=== PATIENT | male | born 1950 | race Caucasian/White ===

== ENCOUNTER 2023-12-19 05:02 | Inpatient (IN) | payer OTHER ==
[~2023-12-19] VITALS: Ht 175.3 cm; Wt 61.9 kg
--- NOTE | 2023-12-19 05:10 | NUR ---
Patient to ER bed 06 to gown for evaluation. Side rails up. Report given to LEE COCHRAN.
--- NOTE | 2023-12-19 05:10 | NUR ---
Received report from LEE Campbell. Received patient on bed #6, SAM from relative's home with c/o alcohol intoxication. As per EMS, relatives reported that patient checked out himself from assisted living, went to their house, and drank 12 cans of beer. But according to the patient, he drank 3 glasses of wine and that he does it daily. Patient has nausea and one episode of vomiting. Patient has left above the knee amputation, and scratches on his right lower leg. As per EMS, patient needs assistance to transfer to wheelchair. Patient is AAOx3, ENTERPRISE on both ears, able to answer questions but slowly responds. Vital signs within normal limits.
[2023-12-19 05:17] VITALS: BP_SYST 137; PULSE 84; RESP 19; TEMP 97.7; O2SAT 99
--- NOTE | 2023-12-19 06:19 | NUR ---
ER Dr. Almeida at bedside examining patient.
--- NOTE | 2023-12-19 06:25 | NUR ---
Xray at bedside.
--- NOTE | 2023-12-19 06:58 | NUR ---
Blood drawn at bedside by chief vendor quality.
[2023-12-19 07:11] LABS: BASOPHILS # (AUTO) 0.1 K/uL (0.0-0.2); BASOPHILS % (AUTO) 0.4 % (0.0-2.0); HEMATOCRIT 39.3 % (36-54); HEMOGLOBIN 13.4 g/dL (14.0-18.0); LYMPHOCYTES # (AUTO) 1.6 K/uL (1.0-5.5); LYMPHOCYTES % (AUTO) 11.5 % (20.5-51.5); MEAN CORPUSCULAR HEMOGLOBIN 31 pg (27-31); MEAN CORPUSCULAR HGB CONC 34 % (32-36); MEAN CORPUSCULAR VOLUME 92 fL (79.0-98.0); MONOCYTES # (AUTO) 0.4 K/uL (0.0-1.0); MONOCYTES % (AUTO) 3.2 % (1.7-9.3); NEUTROPHILS # (AUTO) 11.6 K/uL (1.8-7.7); NEUTROPHILS % (AUTO) 84.9 % (40.0-70.0); PLATELET COUNT (AUTO) 255 K/uL (130-430); RED BLOOD CELL COUNT(AUTO) 4.27 MIL/uL (4.2-6.2); RED CELL DISTRIBUTION WIDTH 13.3 % (9.0-15.0); WHITE BLOOD COUNT (AUTO) 13.6 K/uL (4.8-10.8)
--- NOTE | 2023-12-19 07:15 | NUR ---
RECEIVED REPORT FROM LEE HERRERA, CONTINUATION OF CARE ASSUMED.
--- NOTE | 2023-12-19 07:18 | NUR ---
PT IN BED, CONNECTED TO MONITOR, ASLEEP. PT ABLE TO AWAKE WITH VERBAL STIMULI. PT GCS 15, RESPONDING APPROPRIATELY TO QUESTIONS, SPONTANEOUS EYE OPENING, AND PURPOSEFUL MOVEMENT. PT STATING LAST DRINK WAS GLASS OF WINE, DOES NOT NORMALLY DRINK MUCH. CLEAR S1-S2 HEART SOUNDS, CLEAR LUNGS BILATERAL TO AUSCULTATION, AND NO TENDERNESS TO PALPATION OF ABD, NO GUARDING. PT ONLY C/O NAUSEA. DR TAMAYO NOTIFIED OF COMPLAINT AND ORDER RECEIVED FOR ZOFRAN ODT. PT ON RA, SATTING 97%, RESPIRATIONS 16/MIN.
[2023-12-19 07:25] LABS: ALANINE AMINOTRANSFERASE 62 U/L (12-78); ALBUMIN 3.6 g/dL (3.4-4.8); ALCOHOL, BLOOD 235 mg/dL (<10); AMYLASE 135 U/L (0-100); ANION GAP 19 (5-15); ASPARTATE AMINOTRANSFERASE 55 U/L (10-37); BILIRUBIN,DIRECT 0.3 mg/dL (0.0-0.3); CALCIUM 8.4 mg/dL (8.4-11.0); CARBON DIOXIDE 20 mmol/L (23-29); CHLORIDE 90 mmol/L (98-107); CREATININE 0.98 mg/dL (0.55-1.30); GLUCOSE 133 mg/dL (74-106); LIPASE 42 U/L (16-77); POTASSIUM 3.9 mmol/L (3.5-5.1); PROTHROMBIN TIME 10.1 SECS (9.5-12.5); SODIUM SERUM 129 mmol/L (136-145); TOTAL BILIRUBIN 0.8 mg/dL (0.0-1.0); TOTAL PROTEIN, SERUM 6.7 g/dL (6.4-8.3); UREA NITROGEN, BLOOD 12 mg/dL (8-21)
[2023-12-19] MEDS: ONDANSETRON 4 MG ODT TAB PO ONE (07:27)
--- NOTE | 2023-12-19 07:27 | NUR ---
PT INFORMED OF NEED FOR URINE SAMPLE FOR UA. PT PROVIDED URINAL AT BEDSIDE.
--- NOTE | 2023-12-19 07:31 | NUR ---
CALL MADE TO HOME PHONE NUMBER ON FILE, CALL RINGING TO VOICEMAIL. VOICEMAIL LEFT, ADVISING TO CALL BACK [facility].
--- NOTE | 2023-12-19 07:55 | NUR ---
# 20 gauge angiocath placed to L FOREARM. Use of asceptic technique. Opsite placed over site. Blood return noted. Flushed with 10 cc of normal saline. No evidence of infiltration noted.
[2023-12-19] MEDS: NACL 0.9% 1,000 ML IV ONE (07:58)
[2023-12-19 08:30] LABS: ACETONE, SERUM NEGATIVE (NEGATIVE)
[2023-12-19] MEDS ORDERED: LORA-259 PO (08:50)
--- NOTE | 2023-12-19 09:12 | NUR ---
LEFT MESSAGE FOR DE ICER KIT ASSEMBLER TO SEE PT.
--- NOTE | 2023-12-19 09:31 | NUR ---
UNABLE TO REACH ANY FAMILY FOR PT DISPOSITION. SOCIAL WORK NOTIFIED OF NEED.
--- NOTE | 2023-12-19 09:45 | NUR ---
SECOND CALL TO MONITORING COORDINATOR, SPOKE WITH EMILIE, WILL SEE PT
[2023-12-19 10:25] LABS: BILIRUBIN,URINE NEGATIVE (NEGATIVE); BLOOD, URINE 2+ (NEGATIVE); CLARITY/URINE CLEAR (CLEAR); COLOR,URINE YELLOW (YELLOW); GLUCOSE,URINE 1+ (NEGATIVE); KETONES,URINE 2+ (NEGATIVE); LEUKOCYTE ESTERASE ,URINE NEGATIVE (NEGATIVE); NITRITE, URINE NEGATIVE (NEGATIVE); PROTEIN URINE 2+ (NEGATIVE); UROBILINOGEN,URINE 0.2 (0.2-1.0)
--- NOTE | 2023-12-19 10:33 | NUR ---
PT RESTING IN BED WITH NO SIGNS OF ACUTE DISTRESS. PT CONNECTED TO MONITOR. PT PENDING EVAL BY SOCIAL WORK PRIOR TO DISPOSITION D/T UNKNOWN ADDRESS TO SEND PT OR FAMILY TO ASSUME CARE OF PT AFTER DISCHARGE.
[2023-12-19 10:48] LABS: BACTERIA,URINE None Seen /HPF (None Seen); HYALINE CASTS, URINE 0-3 /LPF (None Seen); WBC,URINE NONE SEEN /HPF (0-3)
--- NOTE | 2023-12-19 11:10 | NUR ---
EMILIE (SOCIAL WORK) AT BEDSIDE, EVALUATING PT
--- NOTE | 2023-12-19 11:17 | NUR ---
PT AWAKE IN BED, C/O NAUSEA. PT CONNECTED TO MONITOR. PT PENDING DISPOSITION D/T UNKNOWN DESTINATION OR FAMILY TO ASSUME CARE OF PT.
--- NOTE | 2023-12-19 11:20 | NUR ---
PT C/O RECURRENT NAUSEA AND BP RISING TO 174/85. DR RONI Fong NOTIFIED. ORDER RECEIVED/PLACED FOR ATIVAN 1MG IVP.
[2023-12-19] MEDS: LORazepam 2 MG/ML VIAL IVP ONE (11:32)
--- NOTE | 2023-12-19 11:52 | NUR ---
PT SEEN ASLEEP IN BED, CONNECTED TO MONITOR. PENDING DISCHARGE, IN COORDINATION WITH SOCIAL WORK. PT'S SISTER AND [id number] INFORMATION OBTAINED.
--- NOTE | 2023-12-19 12:53 | NUR ---
SPOKE WITH EMILIE (SOCIAL WORK) OVER PHONE, NO UPDATES AT THIS TIME. PT DOES NOT RECALL ADDRESS OF HIS SISTER'S HOUSE OR WHERE HE WAS PICKED UP.
--- NOTE | 2023-12-19 13:04 | NUR ---
SPOKE WITH BROTHER IN LAW MAURICIO GONGORA AT [phone] AND REQUESTING THAT ORACLE FUSION CONSULTANT FIND PLACEMENT FOR PT DUE TO ALCOHOLISM AND PT IS NO LONGER WELCOME IN HIS HOME. EXPLAINED THAT ORACLE FUSION CONSULTANT EMILIE SPOKE WITH PT AND THAT I WILL BE GIVING EMILIE HIS NUMBER TO SPEAK WITH HIM, HE AGREED TO THAT. CALL PLACED TO EMILIE AND MESSAGE LEFT, AWAITING CALL BACK
--- NOTE | 2023-12-19 13:13 | NUR ---
PT ASLEEP IN BED WITH NO SIGNS OF ACUTE DISTRESS, CONNECTED TO MONITOR.
--- NOTE | 2023-12-19 14:21 | NUR ---
PT ABLE TO REARRANGE POSITION IN BED WITH NO ASSISTANCE, RESPONDING APPROPRIATELY TO QUESTIONS AND OPENING EYE SPONTANEOUSLY. GCS 15. PT STILL PENDING DISPOSITION D/T MULTIPLE FACTORS, CORRECTION WARDEN EMILIE FOLLOWING CASE.
--- NOTE | 2023-12-19 14:42 | NUR ---
PER EMILIE (SOCIAL WORK), PT CANNOT BE DISCHARGED TO LONGTERM D/T LACK OF MODE OF MOBILITY (WHEELCHAIR) - PT L AKA. EMILIE STATING IF FAMILY IS ABLE TO BRING WHEELCHAIR, THEN PT CAN BE DISPOSITIONED TO NEARBY LONGTERM. PT ALSO IS NOT ELIGIBLE FOR RECOOPERATIVE CARE D/T LACK OF AMBULATION. PT HAS NOT SEEN PCP SINCE 2021, EMILIE STATING PCP IS UNABLE FOR RECOMMENDATION. DR RONI Fong NOTIFIED OF SITUATION.
--- NOTE | 2023-12-19 14:45 | NUR ---
Provider Calling:front services agent admissions to contact [facility] Reason for Call: admit request auth
--- NOTE | 2023-12-19 15:47 | NUR ---
Saturator Tender re: homelessness, placement, and alcoholism I met with patient in the ED earlier today, however he was not coherent enough to participate in line of questioning. Efforts were made to contact his family. I called and left a message for the brother in law. I provided my contact information and requested a return phone call. I went through the patient's health insurance and found his PCP, Dr. Joaquin Farias. I spoke with Liana, from the office who advised that the patient is under the care of Dr. Farias, however he hasn't been seen since 2021. She provided me with the emergency contact that the patient had, his brother, Mitesh. Mitesh has the same number attached to the patient, and no one answers that line. Multiple calls came from the ED asking about an update on the patient. I advised LEE Painting and Dr. Almeida of the barriers to the D/C. The patient is an amputee with a prosthesis and has a wheelchair, however neither are with the patient. At this time, the patient cannot be safely discharged. Per Dr. Almeida, he will likely admit. At the request of Dr. Almeida, contact information was provided for Dr. Joaquin Farias. Dr. Joaquin Farias: [phone]; [phone]; [address] [place] [address]; [place] [address] brotherMitesh: [phone]
--- NOTE | 2023-12-19 15:55 | NUR ---
PT SOILED, PT CLEANED W CLEAN WET WIPES, CHANGED INTO YELLOW GOWN AND NEW CHUX/LINEN PLACED UNDER PT. PT RECONNECTED TO CARDIAC LEADS, BP CUFF, AND PULSE OX.
--- NOTE | 2023-12-19 15:58 | NUR ---
PT SKIN VISUALIZED DURING CLEANING AND GOWNING. NO OPEN WOUNDS BUT SCATTERED DISCOLORATION AND RED LESIONS ON R SOTO. CIRCULAR PATCH 3" DIAMETER WITH RED DISCOLORATION SEEN ON R MIDDLE BACK. PT SACRUM NO OPEN WOUNDS BUT BLANCHABLE RED, PT INSTRUCTED TO REPOSITION IN BED MORE FREQUENTLY. PT VERBALIZED UNDERSTANDING. SCATTERED RED LESIONS SEEN ACROSS UPPER EXTREMITIES, NO OPEN WOUNDS OR PURULENT DISCHARGE.
--- NOTE | 2023-12-19 16:30 | NUR ---
Provider Calling:CEMENT BOAT AND BARGE LOADER MARY Reason for Call: CONNECT PEER TO PEER Orders AUTHORIZATION TO ADMIT Comments: AWAITING ROOM AVAILABLE PENDING H&P + FACESHEET FAXED TO Does ER need to call back Provider WILL FOLLOW UP WITH AFTER HOURS CASE MANAGEMENT FOR BED AT [phone]
--- NOTE | 2023-12-19 16:45 | NUR ---
TYPEWRITER TESTER MARY GAVE AUTHORIZATION TO ADMIT AWAITIING CALL BACK FOR FACILITY TO RECEIVE PT.
--- NOTE | 2023-12-19 17:00 | NUR ---
PT SEEN ASLEEP IN BED, ABLE TO WAKE W VERBAL STIMULI. PT AOX4, GCS 15. PT CONNECTED TO MONITOR. PT PENDING DISPOSITION - MD TO MD CALL BETWEEN INSURANCE MD AND DR RONI Blackmon
--- NOTE | 2023-12-19 17:02 | NUR ---
INFRASTRUCTURE SOFTWARE ENGINEER CALLED BACK TO NOTE INSURANCE COMPANY REQUESTED TELE UNIT AND NO BEDS AVAIALABLE. WILL CONTACT CHAPARRO Sharp VIA PAGER
--- NOTE | 2023-12-19 17:24 | NUR ---
ATTEMPTED TO PERFORM MED REC, PT DOES NOT RECALL ANY MEDICATIONS.
--- NOTE | 2023-12-19 17:25 | NUR ---
Admit bed requested Patient will be admitted to care of Dr. CHAPARRO Sharp Admitted to MED SURG unit. Diagnosis ALCOHOL ABUSE Inpatient (Yes or No) YES Observation (Yes or No) NO Orientation concerns or request close to nursing station (Yes or No) NO Covid Status N/A On vent or bipap NO Isolation requirements NO Needs a sitter NO From Home (Yes or if No enter name of facility) YES Requires Dialysis (Yes or No) NO Med Rec Completed (Yes of No) UNABLE TO OBTAIN
--- NOTE | 2023-12-19 18:04 | NUR ---
Patient will be admitted to care of DR CHAPARRO Sharp Admitted to MS unit. Will go to room 114A. Complete and up to date summary report printed. SBAR report to be given OVER PHONE with opportunity for questions.
--- NOTE | 2023-12-19 18:05 | NUR ---
REPORT GIVEN TO LEE WASHINGTON OVER PHONE WITH OPPORTUNITIES FOR QUESTIONS AND ANSWERS PROVIDED. PT TO BE PLACED IN MS BED 114A VIA WHEELCHAIR.
--- NOTE | 2023-12-19 18:22 | NUR ---
Admission Note Received patient from ER with diagnosis of ETOH. Initial Plan of Care discussed-patient verbalized his understanding. Noted patient with left CHARISSA-patient stated he left his prosthesis at his sister's house. Patient c/o nausea-MD called for orders-awaiting call back. Patient oriented to room, call light, pain management and safety. Side rails up x3, bed alarm on, room close to nursing station for safety. Call light within reach.
[2023-12-19 18:34] VITALS: BP_SYST 158; PULSE 104; RESP 18; TEMP 96.9; O2SAT 96
[2023-12-19] MEDS ORDERED: FOLIC ACID 1 MG, THIAMINE HCL 100 MG, MAGNESIUM SULFATE 1 GM, MVI 10 ML in NACL 0.9% 1,... IV ONE (19:15)
--- NOTE | 2023-12-19 19:25 | NUR ---
CLOSING NOTE Pt resting quietly in bed with no s/s resp distress, no c/o pain. C/o nausea-just put in order for Zofran from the doctor. Endorsed care to math interventionist nurse. Skin and safety precautions remain in place. Call light within reach.
[2023-12-19] MEDS: ONDANSETRON HCL 4 MG/2 ML VIAL IVP PRN (19:38)
[2023-12-19 19:55] VITALS: BP_SYST 151; PULSE 99; RESP 18; TEMP 97.8
[2023-12-19] MEDS: THIAMINE HCL 100 MG, MAGNESIUM SULFATE 1 GM in NS 100 ML IV ONE (20:19)
[2023-12-19] MEDS: chlordiazePOXIDE HCL 10 MG CAPSULE PO SCH (20:55)
[2023-12-19] MEDS: FOLIC ACID 1 MG, MVI 10 ML in NACL 0.9% 1,000 ML IV ONE (21:50)
[2023-12-20] VITALS: BP_SYST 146; PULSE 94; RESP 17; TEMP 97.5; O2SAT 97
--- NOTE | 2023-12-20 00:49 | NUR ---
NOTES PAGED AND SPOKE TO DR. MAYFIELD, PATIENT C/O HEADACHE, NEW ORDER GIVEN FOR TYLENOL 650 MG PO Q 4H PRN. WILL CONTINUE TO MONITOR.
[2023-12-20] MEDS: ACETAMINOPHEN 325 MG TABLET PO PRN (00:59)
[2023-12-20 07:45] VITALS: BP_SYST 150; PULSE 91; RESP 17; TEMP 98.2; O2SAT 94
--- NOTE | 2023-12-20 07:45 | NUR ---
opening notes Received report from die cast die maker nurse. Patient is lying in bed and eating breakfast. A0X4. respirations are even and unlabored. skin is warm and dry. bowel sounds are active. denies pain. patient educated on how to use call light. bed in lowest position. call light within reach.
--- NOTE | 2023-12-20 08:45 | NUR ---
note morning medication administered. patient tolerated well.
[2023-12-20] MEDS ORDERED: HYDROcodone/ACETAMIN 10-325 MG TAB PO PRN (09:15)
[2023-12-20] MEDS ORDERED: HYDROcodone/ACETAMIN 5-325 MG TAB (NORCO/ VICODIN) PO PRN (09:15)
[2023-12-20] MEDS ORDERED: NALOXONE HCL 0.4 MG/ML AMP (NARCAN) IVP PRN ×2 (09:15)
[2023-12-20 09:47] LABS: BASOPHILS % (AUTO) 0.5 % (0.0-2.0); EOSINOPHILS % (AUTO) 0.1 % (0.0-4.0); HEMATOCRIT 36.8 % (36-54); HEMOGLOBIN 12.4 g/dL (14.0-18.0); LYMPHOCYTES # (AUTO) 1.2 K/uL (1.0-5.5); LYMPHOCYTES % (AUTO) 14.4 % (20.5-51.5); MEAN CORPUSCULAR HEMOGLOBIN 31 pg (27-31); MEAN CORPUSCULAR HGB CONC 34 % (32-36); MEAN CORPUSCULAR VOLUME 94 fL (79.0-98.0); MONOCYTES # (AUTO) 0.6 K/uL (0.0-1.0); MONOCYTES % (AUTO) 7.1 % (1.7-9.3); NEUTROPHILS # (AUTO) 6.4 K/uL (1.8-7.7); NEUTROPHILS % (AUTO) 77.9 % (40.0-70.0); PLATELET COUNT (AUTO) 175 K/uL (130-430); RED BLOOD CELL COUNT(AUTO) 3.93 MIL/uL (4.2-6.2); RED CELL DISTRIBUTION WIDTH 13.7 % (9.0-15.0); WHITE BLOOD COUNT (AUTO) 8.3 K/uL (4.8-10.8)
[2023-12-20] MEDS: THIAMINE HCL 100 MG TABLET PO ONE (09:48)
[2023-12-20] MEDS: MULTIVITAMINS TAB 1 TABLET PO ONE (09:48)
[2023-12-20] MEDS: FOLIC ACID 1 MG TABLET PO ONE (09:48)
[2023-12-20 10:05] LABS: ALANINE AMINOTRANSFERASE 48 U/L (12-78); ALBUMIN 3.1 g/dL (3.4-4.8); ANION GAP 10 (5-15); ASPARTATE AMINOTRANSFERASE 39 U/L (10-37); CALCIUM 8.3 mg/dL (8.4-11.0); CARBON DIOXIDE 27 mmol/L (23-29); CHLORIDE 96 mmol/L (98-107); CREATININE 1.04 mg/dL (0.55-1.30); GLUCOSE 172 mg/dL (74-106); POTASSIUM 3.9 mmol/L (3.5-5.1); SODIUM SERUM 133 mmol/L (136-145); TOTAL BILIRUBIN 1.6 mg/dL (0.0-1.0); UREA NITROGEN, BLOOD 11 mg/dL (8-21)
[2023-12-20 12:40] VITALS: BP_SYST 144; PULSE 94; RESP 16; TEMP 98.2
[2023-12-20] MEDS: NORMAL SALINE 5 ML DISP.SYRIN IVF SCH (14:06)
--- NOTE | 2023-12-20 16:29 | NUR ---
Graphic Illustrator: Received a returned call from the brother in law, Salvador. He advised that I was calling his business line and not his personal number. He provided me with updated numbers for he and his [the patient's sister]. The face sheet was sent to Letha in admitting to update with accurate information. I spoke with both the sister and DAVID. The patient was residing in [place] with the brother Mitesh, however he dies 3wks ago. At this time, the sister and DAVID are looking to bring the patient near the area in order to have him around family so he is not alone. They have found a 55+ community in [place], however his move in date isn't until 01.24.24. At this time, the sister and DAVID are looking for a placement for the patient that will not allow him to have access to alcohol. The family was explained how placement in a treatment program works, but was not sure that the patient would go. i inquired about a wheelchair for the patient, and they state the patient has a prosthesis, walker and wheelchair. Lately the patient has been unable to walk, even with the prosthesis, therefore is confined to a wheelchair. I advised the family that I would ask for a PT eval and see if we can get him evaluated and maybe recommended for SNF placement for skilled rehab until he goes to his new usp. At this time, the patient resides in a 3rd story apartment in [place] that has no elevators. Spoke with RN Eli VIRAMONTES, and requested a PT eval. She advised she would get an order. I followed up with the family and requested they bring the prosthesis here to the hospital as the patient will need it for rehab. At this time, the patient has a pending PT eval order. Graphic Illustrator will remain available as needs arise.
[2023-12-20 17:02] VITALS: BP_SYST 155; PULSE 82; RESP 18; TEMP 99.7; O2SAT 96
[2023-12-20] MEDS: LORazepam 2 MG/ML VIAL IVP PRN (17:18)
--- NOTE | 2023-12-20 18:47 | NUR ---
closing note patient is lying in bed with the tv on. denies pain. no acute distress noted. iv is patent and has been flushed. patient educated on how to use call light. bed in lowest position. call light within reach.
[2023-12-20 19:00] VITALS: O2SAT 95
[2023-12-20 20:00] VITALS: BP_SYST 155; PULSE 89; RESP 18; TEMP 98.6; O2SAT 95
[2023-12-20] MEDS: LORazepam 1 MG TABLET PO SCH (21:44)
[2023-12-21 00:26] VITALS: BP_SYST 154; PULSE 83; RESP 14; TEMP 99; O2SAT 96
[2023-12-21 07:12] LABS: BASOPHILS % (AUTO) 0.2 % (0.0-2.0); EOSINOPHILS % (AUTO) 0.4 % (0.0-4.0); HEMATOCRIT 37.5 % (36-54); HEMOGLOBIN 12.4 g/dL (14.0-18.0); LYMPHOCYTES # (AUTO) 1.7 K/uL (1.0-5.5); LYMPHOCYTES % (AUTO) 24.4 % (20.5-51.5); MEAN CORPUSCULAR HEMOGLOBIN 32 pg (27-31); MEAN CORPUSCULAR HGB CONC 33 % (32-36); MEAN CORPUSCULAR VOLUME 95 fL (79.0-98.0); MONOCYTES # (AUTO) 0.5 K/uL (0.0-1.0); NEUTROPHILS # (AUTO) 4.7 K/uL (1.8-7.7); PLATELET COUNT (AUTO) 170 K/uL (130-430); RED BLOOD CELL COUNT(AUTO) 3.95 MIL/uL (4.2-6.2); RED CELL DISTRIBUTION WIDTH 13.4 % (9.0-15.0); WHITE BLOOD COUNT (AUTO) 6.9 K/uL (4.8-10.8)
[2023-12-21 07:36] LABS: ANION GAP 10 (5-15); CALCIUM 8.5 mg/dL (8.4-11.0); CARBON DIOXIDE 26 mmol/L (23-29); CHLORIDE 99 mmol/L (98-107); CREATININE 0.87 mg/dL (0.55-1.30); GLUCOSE 129 mg/dL (74-106); POTASSIUM 3.6 mmol/L (3.5-5.1); SODIUM SERUM 135 mmol/L (136-145); UREA NITROGEN, BLOOD 9 mg/dL (8-21)
[2023-12-21 08:15] VITALS: BP_SYST 133; PULSE 82; RESP 17; TEMP 97.6; O2SAT 98
[2023-12-21] MEDS: THIAMINE HCL 100 MG TABLET PO SCH (08:28)
[2023-12-21] MEDS: MULTIVITAMINS TAB 1 TABLET PO SCH (08:28)
[2023-12-21] MEDS: FOLIC ACID 1 MG TABLET PO SCH (08:29)
[2023-12-21 08:30] VITALS: O2SAT 98
--- NOTE | 2023-12-21 08:30 | NUR ---
opening note received report from warehouse worker 2nd shift nurse. patient is Lying in bed and eating breakfast. AOX4. skin is warm and dry. respirations are even and unlabored. bowel sounds are active. iv is patent and has been flushed. denies pain. patient educated on how to use call light. bed in lowest position. call light within reach.
[2023-12-21 12:00] VITALS: BP_SYST 134; PULSE 80; RESP 14; TEMP 97.9; O2SAT 94
--- NOTE | 2023-12-21 13:33 | NUR ---
note Family brought belongings for the patient. Belonging list updated.
[2023-12-21 16:35] VITALS: BP_SYST 152; PULSE 85; RESP 15; TEMP 98.2; O2SAT 100
--- NOTE | 2023-12-21 18:35 | NUR ---
closing note patient is lying in bed and watching tv. Aox4. patient denies pain and is not showing any distress. iv is patent and has been flushed. patient educated on how to use call light. bed in lowest position. call light within reach.
[2023-12-21 19:00] VITALS: O2SAT 95
--- NOTE | 2023-12-21 19:20 | NUR ---
OPENING NOTE PT SLEEPING, NO S/S OF DISTRESS NOTED, BED LOW AND LOCKED WITH SIDE RAILS UP X4, CALL LIGHT WITHIN A REACH. WILL ADMINISTER MEDS
[2023-12-22 00:28] VITALS: BP_SYST 146; PULSE 94; RESP 16; TEMP 98; O2SAT 98
--- NOTE | 2023-12-22 07:01 | NUR ---
CLOSING NOTE PT SLEEPING, NO S/S OF DISTRESS NOTED, BED LOW AND LOCKED WITH SIDE RAILS UP X4, CALL LIGHT WITHIN A REACH. WILL ENDORSE DAYTIME NURSE.
[2023-12-22 08:00] VITALS: BP_SYST 160; PULSE 87; RESP 16; TEMP 97.5; O2SAT 95
[2023-12-22 08:39] LABS: BASOPHILS % (AUTO) 0.3 % (0.0-2.0); EOSINOPHILS # (AUTO) 0.1 K/uL (0.0-0.4); EOSINOPHILS % (AUTO) 0.9 % (0.0-4.0); HEMATOCRIT 38.8 % (36-54); HEMOGLOBIN 13.2 g/dL (14.0-18.0); LYMPHOCYTES # (AUTO) 1.6 K/uL (1.0-5.5); LYMPHOCYTES % (AUTO) 25.4 % (20.5-51.5); MEAN CORPUSCULAR HEMOGLOBIN 32 pg (27-31); MEAN CORPUSCULAR HGB CONC 34 % (32-36); MEAN CORPUSCULAR VOLUME 94 fL (79.0-98.0); MONOCYTES # (AUTO) 0.5 K/uL (0.0-1.0); MONOCYTES % (AUTO) 7.4 % (1.7-9.3); NEUTROPHILS # (AUTO) 4.3 K/uL (1.8-7.7); PLATELET COUNT (AUTO) 167 K/uL (130-430); RED BLOOD CELL COUNT(AUTO) 4.12 MIL/uL (4.2-6.2); RED CELL DISTRIBUTION WIDTH 13.2 % (9.0-15.0); WHITE BLOOD COUNT (AUTO) 6.5 K/uL (4.8-10.8)
[2023-12-22 08:53] LABS: ALANINE AMINOTRANSFERASE 45 U/L (12-78); ANION GAP 7 (5-15); ASPARTATE AMINOTRANSFERASE 34 U/L (10-37); CALCIUM 8.6 mg/dL (8.4-11.0); CARBON DIOXIDE 29 mmol/L (23-29); CHLORIDE 100 mmol/L (98-107); CREATININE 0.84 mg/dL (0.55-1.30); GLUCOSE 119 mg/dL (74-106); POTASSIUM 3.4 mmol/L (3.5-5.1); SODIUM SERUM 136 mmol/L (136-145); TOTAL BILIRUBIN 0.8 mg/dL (0.0-1.0); UREA NITROGEN, BLOOD 10 mg/dL (8-21)
[2023-12-22 12:00] VITALS: BP_SYST 155; PULSE 88; RESP 16; TEMP 97.2; O2SAT 97
[2023-12-22] MEDS: POTASSIUM CHLORIDE 20 MEQ/PKT PACKET PO ONE (14:48)
[2023-12-22 16:00] VITALS: BP_SYST 152; PULSE 91; RESP 16; TEMP 97.4; O2SAT 97
[2023-12-22 20:00] VITALS: BP_SYST 147; PULSE 94; RESP 20; TEMP 97.2; O2SAT 95
--- NOTE | 2023-12-22 20:00 | NUR ---
Opening Notes Patient is alert and oriented to person, place, time, and event. Patient states he feels anxiety. Patient was educated on breathing techniques to relax and on medication prescribed. Fall precautions in place with call light within reach.
[2023-12-22 22:00] VITALS: O2SAT 96
[2023-12-23 00:05] VITALS: BP_SYST 152; PULSE 92; RESP 18; TEMP 97.6; O2SAT 96
--- NOTE | 2023-12-23 07:04 | NUR ---
Closing Note Patient is awake alert and oriented to person, place, time,and event. Patient denies any pain or discomfort. Fall precautions in place with call light within reach. Patients respirations are even and unlabored.
--- NOTE | 2023-12-23 07:41 | NUR ---
OPENING NOTE PT PRESENTS IN BED A&O X's 4. DENIES ANY PAIN BUT STATES HE HAS ANXIETY. SAFETY PRECAUTIONS ARE PUT IN PLACE. NO SIGNS OF DISTRESS. RECEIVED REPORT FROM THE SECURITY ROVER NURSE.
[2023-12-23 08:01] VITALS: O2SAT 95
[2023-12-23 08:09] VITALS: BP_SYST 129; PULSE 90; RESP 16; TEMP 97; O2SAT 95
--- NOTE | 2023-12-23 11:00 | NUR ---
ROUNDING : PT LYING ON THE BED,WITH EYE CLOSE , HOB ELEVATED ,BREATH EVEN AND NONLABORED, NO S/S DISTRESS, CALL LIGHT WITHIN REACH, SEIZURE ,FAll PRECAUTION IN PLACE .
[2023-12-23 12:45] VITALS: BP_SYST 123; PULSE 96; RESP 18; TEMP 98.6; O2SAT 97
--- NOTE | 2023-12-23 12:55 | NUR ---
ADJUSTED BELONGING: RECEIVED CALL FROM ADMISSION , SOMEBODY LEFT BELONGING FOR 112B , 1 CELLPHONE , 1 INFORMATION SYSTEMS ANALYST , 1 GLASSES GIVEN TO PT .
--- NOTE | 2023-12-23 13:22 | NUR ---
High School Drafting Teacher: Telephone call made tot he sister, Gissel, requesting that the patient is aware that he will be going to a SNF for skilled rehab, but is requesting his glasses and cell phone. The patient also requested his wheelchair, but I advised her not to bring the wheelchair as to not get it mixed in the SNF population of wheelchairs. I advised the sister that the SNF will have a loner wheelchair for his use. At the time, the sister states she will bring in the patient's cell phone and eye glasses. I advised her to check them in with the nurse prior to her giving them to the patient.
--- NOTE | 2023-12-23 14:01 | NUR ---
ROUNDING PT IS LYING ON THE BED RELAXING. NO SIGNS OF DISTRESS. BREATHING IS EVEN AND NON LABORED. SAFETY PRECAUTIONS ARE PUT IN PLACE.
--- NOTE | 2023-12-23 19:30 | NUR ---
closing note patient is lying in bed with eye close.breath even and nonlabored , denies pain. no acute distress noted. patient educated on how to use call light. bed in lowest position. call light within reach. seizure precaution in place. sbar report given to the material handler 2nd shift nurse at bedside .
[2023-12-23 20:00] VITALS: BP_SYST 118; PULSE 97; RESP 18; TEMP 98.1; O2SAT 92; O2SAT 98
--- NOTE | 2023-12-23 20:42 | NUR ---
OPENING NOTES RECEIVED REPORT FROM AM NURSE, PT IS RESTING IN BED AWAKE, CHEST RISING UP AND DOWN, NO SIGNS OF PAIN OR DISCOMFORT. BED ALARM ON, CALL LIGHT WITHIN REACH, SEIZURE PRECAUTIONS IN PLACE.
[2023-12-24] VITALS: BP_SYST 144; PULSE 86; RESP 18; TEMP 98
--- NOTE | 2023-12-24 04:21 | NUR ---
LATE ENTRY MST ASSESSMENT DONE AT 1999 BUT ENTERED LATE.
[2023-12-24 04:29] LABS: BASOPHILS % (AUTO) 0.3 % (0.0-2.0); EOSINOPHILS # (AUTO) 0.1 K/uL (0.0-0.4); EOSINOPHILS % (AUTO) 0.9 % (0.0-4.0); HEMATOCRIT 37.2 % (36-54); HEMOGLOBIN 12.6 g/dL (14.0-18.0); LYMPHOCYTES # (AUTO) 1.9 K/uL (1.0-5.5); LYMPHOCYTES % (AUTO) 25.6 % (20.5-51.5); MEAN CORPUSCULAR HEMOGLOBIN 32 pg (27-31); MEAN CORPUSCULAR HGB CONC 34 % (32-36); MEAN CORPUSCULAR VOLUME 94 fL (79.0-98.0); MONOCYTES # (AUTO) 0.6 K/uL (0.0-1.0); MONOCYTES % (AUTO) 8.5 % (1.7-9.3); NEUTROPHILS # (AUTO) 4.7 K/uL (1.8-7.7); NEUTROPHILS % (AUTO) 64.7 % (40.0-70.0); PLATELET COUNT (AUTO) 175 K/uL (130-430); RED BLOOD CELL COUNT(AUTO) 3.97 MIL/uL (4.2-6.2); RED CELL DISTRIBUTION WIDTH 13.3 % (9.0-15.0); WHITE BLOOD COUNT (AUTO) 7.3 K/uL (4.8-10.8)
[2023-12-24 04:57] LABS: ANION GAP 9 (5-15); CALCIUM 8.5 mg/dL (8.4-11.0); CARBON DIOXIDE 28 mmol/L (23-29); CHLORIDE 100 mmol/L (98-107); CREATININE 1.01 mg/dL (0.55-1.30); GLUCOSE 125 mg/dL (74-106); POTASSIUM 3.8 mmol/L (3.5-5.1); SODIUM SERUM 137 mmol/L (136-145); UREA NITROGEN, BLOOD 18 mg/dL (8-21)
[2023-12-24 07:15] VITALS: BP_SYST 132; PULSE 85; RESP 14; TEMP 97.3; O2SAT 95
--- NOTE | 2023-12-24 07:30 | NUR ---
OPENING NOTE PT PRESENTS LYING IN BED WITH NO S/S OF DISTRESS. RECEIVED REPORT FROM PHLEBOTOMY TECHNOLOGIST NURSE. PT VITALS ARE STABLE. PT BED ALARM IS ON AND SAFETY PRECAUTIONS ARE PUT IN PLACE.
--- NOTE | 2023-12-24 07:48 | NUR ---
CLOSING NOTES PT. IS RESTING IN BED, NO SIGNS OF PAIN OR DISCOMFORT. ALL SAFETY MEASURES ON, BED IN LOW POSITION AND CALL LIGHT WITHIN REACH. WILL ENDORSE REPORT TO AM NURSE.
[2023-12-24 11:18] VITALS: BP_SYST 137; PULSE 88; RESP 15; TEMP 96.4; O2SAT 97
--- NOTE | 2023-12-24 13:31 | NUR ---
Green Plumber PARKING CASHIER called [facility] pt. who already had a bed assigned. Admissions stated they received word that pt.s insurance, [employer] is not an accepted insurance. Pt. will not be able to go to this SNF. PARKING CASHIER called [employer] to get the phone contact for [facility]. Scan, [facility]- [phone]. PARKING CASHIER left a message . PARKING CASHIER called back, spoke to rep. who stated the CM is Tarun, . PARKING CASHIER left a detailed message and is in need of contracted SNFs. Addendum: 12/24/23 at 1608 by Arabella Parker MSW Green Plumber PARKING CASHIER received some names of contracted SNFs, sent packet to the following [facility] ph.[phone] fx. [phone] [facility] [phone] [facility] ph.[phone] Yes they take this insurance but corporate instructed them not to take this insurance due to rates being too low [facility] ph. [phone] fx. [phone] [facility] ph. [phone] [address] [phone] [facility] ph. [phone] does not take this insurance Leroy olivas [facility] ph. [phone] Fx.[phone] Addendum: 12/25/23 at 1629 by Arabella Parker PARKING CASHIER Green Plumber PARKING CASHIER made some follow up phone calls re. the clinicals that were sent. [facility], -no reply [facility] -stated No because as per their cooperate, the rates are too low. [place]- No, would not give a reason when asked [facility]- No they do not take any [facility]AN [facility], no if the insurance does not say, "[place]" Leroy [place] now called [place]- left for the day.
--- NOTE | 2023-12-24 13:56 | NUR ---
Dietitian Recommendations Continue Regular diet. Recommend ONS - Ensure HP BID to help meet nutritional needs (Provides 700 calories and 40g of protein) Encourage good PO intakes. Consider BM regimen to promote normal GI function. Please refer to nutrition assessment for details. MS DANIEL RD Addendum: 12/24/23 at [address] Amended: Links added. Addendum: 12/24/23 at [address] CORRECTION: *Recommend ONS - Glucerna BID to help meet nutritional needs (Provides 440 calories and 20g of protein)
[2023-12-24 15:13] VITALS: BP_SYST 140; PULSE 87; RESP 16; TEMP 97.7; O2SAT 96
--- NOTE | 2023-12-24 19:20 | NUR ---
closing note patient is lying in bed with eye close.breath even and nonlabored , denies pain. no acute distress noted. bed in lowest position. call light within reach. seizure precaution,fall precaution in place. sbar report given to the cnc machinist 2nd shift nurse at bedside .
--- NOTE | 2023-12-24 19:50 | NUR ---
OPENING NOTE RECEIVED THE REPORT FROM DAY NURSE, PATIENT RESTING IN BED, AOX4, PATIENT DENIES PAIN. BED ALARM ON, BED IN LOWEST POSITION, RAILS UP. CALL LIGHT WITHIN REACH.
[2023-12-24 20:00] VITALS: O2SAT 96
[2023-12-25 00:05] VITALS: BP_SYST 141; PULSE 89; RESP 16; TEMP 97.3; O2SAT 94
--- NOTE | 2023-12-25 06:44 | NUR ---
CLOSING NOTE PATIENT RESTING IN BED, NO C/O PAIN OR DISTRESS. AOX4, UNLABORED BREATHING, BED ALARM ON, BED IN LOWEST POSITION, RAILS UP, AND CALL LIGHT WITHIN REACH. ALL NEEDS MET THROUGHOUT THE MANAGER CARE.
[2023-12-25 06:52] LABS: BASOPHILS % (AUTO) 0.2 % (0.0-2.0); EOSINOPHILS # (AUTO) 0.1 K/uL (0.0-0.4); EOSINOPHILS % (AUTO) 1.5 % (0.0-4.0); HEMOGLOBIN 13.1 g/dL (14.0-18.0); LYMPHOCYTES # (AUTO) 1.9 K/uL (1.0-5.5); LYMPHOCYTES % (AUTO) 22.3 % (20.5-51.5); MEAN CORPUSCULAR HEMOGLOBIN 32 pg (27-31); MEAN CORPUSCULAR HGB CONC 34 % (32-36); MEAN CORPUSCULAR VOLUME 94 fL (79.0-98.0); MONOCYTES # (AUTO) 0.8 K/uL (0.0-1.0); MONOCYTES % (AUTO) 9.7 % (1.7-9.3); NEUTROPHILS # (AUTO) 5.5 K/uL (1.8-7.7); NEUTROPHILS % (AUTO) 66.3 % (40.0-70.0); PLATELET COUNT (AUTO) 174 K/uL (130-430); RED BLOOD CELL COUNT(AUTO) 4.14 MIL/uL (4.2-6.2); RED CELL DISTRIBUTION WIDTH 13.6 % (9.0-15.0); WHITE BLOOD COUNT (AUTO) 8.4 K/uL (4.8-10.8)
--- NOTE | 2023-12-25 07:40 | NUR ---
INITIAL NOTES: Patient is aaox4, denies pain or any discomfort at this time. Respiration is even and unlabored. No episodes of hallucinations. Continue to follow seizure precaution. Bilateral rails are padded. Bed in lowest position. Remind the use of call light for any help. Call light within reach. All needs met.
[2023-12-25 07:49] LABS: ALANINE AMINOTRANSFERASE 87 U/L (12-78); ALBUMIN 3.1 g/dL (3.4-4.8); ANION GAP 8 (5-15); ASPARTATE AMINOTRANSFERASE 47 U/L (10-37); CALCIUM 8.6 mg/dL (8.4-11.0); CARBON DIOXIDE 27 mmol/L (23-29); CHLORIDE 101 mmol/L (98-107); CREATININE 0.97 mg/dL (0.55-1.30); GLUCOSE 114 mg/dL (74-106); POTASSIUM 3.7 mmol/L (3.5-5.1); SODIUM SERUM 136 mmol/L (136-145); TOTAL BILIRUBIN 0.5 mg/dL (0.0-1.0); TOTAL PROTEIN, SERUM 6.3 g/dL (6.4-8.3); UREA NITROGEN, BLOOD 19 mg/dL (8-21)
[2023-12-25 07:56] VITALS: BP_SYST 143; PULSE 87; RESP 18; TEMP 97.6; O2SAT 96
[2023-12-25 09:13] VITALS: O2SAT 96
[2023-12-25 12:36] VITALS: BP_SYST 154; PULSE 89; RESP 16; TEMP 98.7; O2SAT 99
[2023-12-25 16:51] VITALS: BP_SYST 143; PULSE 84; RESP 16; TEMP 98.7; O2SAT 96
--- NOTE | 2023-12-25 18:08 | NUR ---
CLOSING NOTES: Patient is aaox4, verbally responsive. Denies pain or any discomfort at this time. Ambulate with PT via walker with no difficulties. No pain after ambulation. Respiration is even and unlabored. V/S within pt normal limit. Able to eat with no difficulties. Daughter at the bedside. Remind the use of call light for any help. Bed in lowest position. Call light within reach. All needs met.
--- NOTE | 2023-12-25 18:20 | NUR ---
CLOSING NOTES: Patient is asleep in bed, no facial grimacing or any discomfort at this time. Respiration is even and unlabored. Bed in lowest position. Continue with seizure precaution. Call light within reach. All needs met.
[2023-12-25 20:00] VITALS: BP_SYST 150; PULSE 86; RESP 16; TEMP 98.6; O2SAT 95
[2023-12-26] VITALS (8 sets, daily range): BP systolic 105–135; PULSE 87–92; RESP 16–18; TEMP 97.2–98.9; O2SAT 94–99
--- NOTE | 2023-12-26 02:24 | NUR ---
CONSULTATION PAGED/CALLED Reason for Consultation: TRANSAMINITIS Person Who was Notified: ALMA DELIA Consulting Physician: VIVIANA Gold Burnisher Specialty: GI Ordering Physician: CHAPARRO
--- NOTE | 2023-12-26 07:57 | NUR ---
INITIAL NOTES: Patient is aaox4, verbally responsive. Denies pain or any discomfort at this time. Respiration is even and unlabored. Patient refused Right side of the padded rails. Patient is aware of risk and benefit. Remind the use of call light for any help. Patient can use urinal. Call light within reach. All needs met.
[2023-12-26 08:14] LABS: BASOPHILS % (AUTO) 0.3 % (0.0-2.0); EOSINOPHILS # (AUTO) 0.1 K/uL (0.0-0.4); EOSINOPHILS % (AUTO) 2.2 % (0.0-4.0); HEMATOCRIT 38.4 % (36-54); HEMOGLOBIN 13.2 g/dL (14.0-18.0); LYMPHOCYTES # (AUTO) 1.7 K/uL (1.0-5.5); LYMPHOCYTES % (AUTO) 27.5 % (20.5-51.5); MEAN CORPUSCULAR HEMOGLOBIN 32 pg (27-31); MEAN CORPUSCULAR HGB CONC 34 % (32-36); MEAN CORPUSCULAR VOLUME 94 fL (79.0-98.0); MONOCYTES # (AUTO) 0.8 K/uL (0.0-1.0); MONOCYTES % (AUTO) 13.4 % (1.7-9.3); NEUTROPHILS # (AUTO) 3.5 K/uL (1.8-7.7); NEUTROPHILS % (AUTO) 56.6 % (40.0-70.0); PLATELET COUNT (AUTO) 190 K/uL (130-430); RED BLOOD CELL COUNT(AUTO) 4.08 MIL/uL (4.2-6.2); RED CELL DISTRIBUTION WIDTH 13.4 % (9.0-15.0); WHITE BLOOD COUNT (AUTO) 6.1 K/uL (4.8-10.8)
[2023-12-26 08:51] LABS: ALANINE AMINOTRANSFERASE 99 U/L (12-78); ALBUMIN 3.2 g/dL (3.4-4.8); ANION GAP 7 (5-15); ASPARTATE AMINOTRANSFERASE 46 U/L (10-37); CALCIUM 8.7 mg/dL (8.4-11.0); CARBON DIOXIDE 28 mmol/L (23-29); CHLORIDE 102 mmol/L (98-107); CREATININE 0.95 mg/dL (0.55-1.30); GLUCOSE 101 mg/dL (74-106); POTASSIUM 3.8 mmol/L (3.5-5.1); SODIUM SERUM 137 mmol/L (136-145); TOTAL BILIRUBIN 0.6 mg/dL (0.0-1.0); TOTAL PROTEIN, SERUM 6.4 g/dL (6.4-8.3); UREA NITROGEN, BLOOD 17 mg/dL (8-21)
[2023-12-26 09:07] LABS: HEPATITIS B SURFACE AG Negative (Negative); HEPATITIS C VIRUS AB Non Reactive (Non Reactive)
[2023-12-26 10:07] LABS: AFP, TUMOR MARKER <1.8 ng/mL (0.0-8.4)
[2023-12-26 10:51] LABS: HEPATITIS B CORE AB, TOTAL Negative (Negative)
--- NOTE | 2023-12-26 14:08 | NUR ---
Supervisor Aircraft Cleaning: Efforts continue to be made in order to get the patient in a SNF. At this time there are no accepting facilities due to the 6 contracted facilities in the [place] either no longer accept the insurance or are not accepting the patient due to prior behaviors. The patient has a history of eloping, leaving AMA, and being verbally aggressive. I called the sister, Gissel, to advise her of the the situation regarding SNF placement at discharge. I advised her that the patient would be discharged home, either to her home or his home. The sister advised that the patient was not welcome to her home, but he would need to return to his home. I advised her that we could get home health for him in which a physical therapist would come out to the home to continue to offer him rehab services. The sister advised that the patient would need his wheelchair and that she could not bring it to him today. The sister stated she could bring the wheelchair to him tomorrow and transport him home. The patient will return to his home in [place]. Marci HOWARD CM advised of the sister's agreement to home with home health services, and the sister's plan to transport him to his house.
--- NOTE | 2023-12-26 15:33 | NUR ---
CM: MARÍA barriers: so far there is no accepting snf. HH referral sent to [facility] tel # [phone], fax # . Addendum: 12/26/23 at 1544 by Akhil Mendoza RN Correction: HH referral sent to [facility] per yaquelin Covarrubias request.
--- NOTE | 2023-12-26 18:02 | NUR ---
CLOSING NOTES: Patient is aaox4, verbally responsive. Denies pain or any discomfort at this time. Refused right side padded rails. Aware of risk and benefit. Patient is continent to bowel and bladder. No alcohol withdrawal symptoms at this time. Able to use urinal and bed buck. Remind the use of jaclyn light for any help. Call light within reach. All needs met.
--- NOTE | 2023-12-26 20:00 | NUR ---
Opening Notes Patient is alert and oriented to person, place time, and event. Patient is on room air. Respirations are unlabored and even. Patient is calm and cooperative. Denies any pain or discomfort. Fall precautions in place with call light within reach.
[2023-12-26] MEDS: LORazepam 2 MG/ML VIAL IVP PRN (21:11)
[2023-12-27 00:16] VITALS: BP_SYST 122; PULSE 90; RESP 18; TEMP 96.6; O2SAT 97
[2023-12-27 06:44] LABS: BASOPHILS % (AUTO) 0.5 % (0.0-2.0); EOSINOPHILS # (AUTO) 0.2 K/uL (0.0-0.4); EOSINOPHILS % (AUTO) 2.6 % (0.0-4.0); HEMATOCRIT 38.1 % (36-54); HEMOGLOBIN 13.1 g/dL (14.0-18.0); LYMPHOCYTES # (AUTO) 1.9 K/uL (1.0-5.5); LYMPHOCYTES % (AUTO) 28.5 % (20.5-51.5); MEAN CORPUSCULAR HEMOGLOBIN 32 pg (27-31); MEAN CORPUSCULAR HGB CONC 34 % (32-36); MEAN CORPUSCULAR VOLUME 93 fL (79.0-98.0); MONOCYTES # (AUTO) 0.9 K/uL (0.0-1.0); NEUTROPHILS # (AUTO) 3.6 K/uL (1.8-7.7); NEUTROPHILS % (AUTO) 54.4 % (40.0-70.0); PLATELET COUNT (AUTO) 203 K/uL (130-430); RED BLOOD CELL COUNT(AUTO) 4.08 MIL/uL (4.2-6.2); RED CELL DISTRIBUTION WIDTH 13.4 % (9.0-15.0); WHITE BLOOD COUNT (AUTO) 6.6 K/uL (4.8-10.8)
--- NOTE | 2023-12-27 06:53 | NUR ---
Closing Note Patient is sleeping. Respirations are even and unlabored. IV is patent running as indicated. Fall precautions in place with call light within reach.
[2023-12-27 07:56] LABS: ALANINE AMINOTRANSFERASE 101 U/L (12-78); ALBUMIN 3.2 g/dL (3.4-4.8); ANION GAP 8 (5-15); ASPARTATE AMINOTRANSFERASE 42 U/L (10-37); CALCIUM 8.7 mg/dL (8.4-11.0); CARBON DIOXIDE 26 mmol/L (23-29); CHLORIDE 102 mmol/L (98-107); CREATININE 1.11 mg/dL (0.55-1.30); GLUCOSE 112 mg/dL (74-106); POTASSIUM 3.9 mmol/L (3.5-5.1); SODIUM SERUM 136 mmol/L (136-145); TOTAL BILIRUBIN 0.6 mg/dL (0.0-1.0); TOTAL PROTEIN, SERUM 6.6 g/dL (6.4-8.3); UREA NITROGEN, BLOOD 21 mg/dL (8-21)
[2023-12-27 08:05] VITALS: BP_SYST 135; PULSE 96; RESP 15; TEMP 97.6; O2SAT 95
--- NOTE | 2023-12-27 08:05 | NUR ---
opening note received report from night court magistrate nurse. patient is lying in bed and eating breakfast. patient's skin is warm and dry. respirations are even and unlabored. bowel sounds active. iv is patent and has been flushed. patient educated on how to use call light. bed in lowest position. call light within reach.
[2023-12-27 09:00] VITALS: O2SAT 95
[2023-12-27] MEDS ORDERED: FOLI-43 PO (10:17)
[2023-12-27] MEDS ORDERED: LORA-259 PO (10:17)
[2023-12-27] MEDS ORDERED: THIA100T70 PO (10:17)
[2023-12-27] MEDS ORDERED: MULT400T13 PO (10:17)
[2023-12-27 11:30] VITALS: BP_SYST 120; PULSE 86; RESP 18; TEMP 98.3; O2SAT 98
--- NOTE | 2023-12-27 11:53 | NUR ---
This ws able to arrange HH: [facility] for PT [phone]
--- NOTE | 2023-12-27 13:43 | NUR ---
PHYSICAL THERAPY CO-SIGN The Physical Therapy Progress Notes documented by Alarm Installer have been reviewed. Reviewed/Co-Signed by: Humera Means Documentation Done by:CLIFFORD SEYMOUR Addendum: 12/27/23 at 1343 by Humera Means PT Amended: Links added.
--- NOTE | 2023-12-27 14:12 | NUR ---
Die Engraving Supervisor: Telephone call made to the sister to discuss the discharge arrangements that had been made yesterday as I received a call from nursing that advised she stated she couldn't come today but would come in tomorrow. I advised her that the order was written for today and the patient was discharging today. She indicated that she just received a call to come brick picker the patient, but she couldn't do that due to the time as she had another obligation to be at by 5p. She advised she could be in tomorrow early to brick picker the patient. The patient requires his wheelchair in order to go home and the wheelchair is with the sister at this time. I requested the wheelchair to be brought to the hospital and we can send him home via [employer]. The sister was concerned that the patient would not be able to lift his chair while wearing the prosthesis in order to get up the stairs. I advised her that I would attempt to go through his insurance. Attempts made to [facility] and [employer] for assistance, however there was no answer on either line. I called the sister back and advised her of my inability to get a transport for him to assist him. I advised her that nursing will call her first thing in the AM for transport. Update provided to EUFEMIA Ricci. I advised him to endorse to the next 2 shifts to call the sister first thing in the morning in order to avoid an inability to brick picker the patient. [facility]: [phone] [employer]: [phone]
[2023-12-27 15:22] VITALS: BP_SYST 111; PULSE 87; RESP 16; TEMP 96.9; O2SAT 98
--- NOTE | 2023-12-27 18:29 | NUR ---
closing note patient is lying in bed and watching tv. AOX4. patient has no complaints at this time. denies pain. iv is patent and has been flushed. patient educated on how to use call light. bed in lowest position. call light within reach.
--- NOTE | 2023-12-27 19:25 | NUR ---
NOTE ENDORSED PT BEING D/C HOME IN THE AM. Addendum: 12/27/23 at 1926 by Josue Yuan LVN ENDORSED TO RN ABOUT PT BEING D/C HOME IN THE AM.
[2023-12-27 20:00] VITALS: BP_SYST 134; PULSE 92; RESP 18; TEMP 98.8; O2SAT 97
--- NOTE | 2023-12-27 20:00 | NUR ---
PT ALERT AND ORIENTED X4 NO DISTRESS, SKIN INTACT, L AKA, PT GETS ATIVAN AND ALSO COMPLAINED OF NAUSEA ONCE THIS SHIFT, DENIES ANY PAIN,
[2023-12-28] VITALS: BP_SYST 155; PULSE 93; RESP 18; TEMP 97.9
[2023-12-28 08:00] VITALS: O2SAT 98
--- NOTE | 2023-12-28 08:00 | NUR ---
OPENING NOTES: RECEIVED BEDSIDE SBAR FROM PM SHIFT NURSE , NO S/S OF ANY DISTRESS, NON LABOR BREATHING, CALL LIGHT IN REACH BED AT LOW AND LOCKED POSITION ALL SAFETY AND FALL RISKS IN PLACE, WILL GIVE MEDS PER ORDERS, ALL NEEDS MADE KNOWN.
[2023-12-28 08:06] LABS: ALANINE AMINOTRANSFERASE 88 U/L (12-78); ALBUMIN 3.2 g/dL (3.4-4.8); ANION GAP 8 (5-15); ASPARTATE AMINOTRANSFERASE 34 U/L (10-37); CALCIUM 8.9 mg/dL (8.4-11.0); CARBON DIOXIDE 28 mmol/L (23-29); CHLORIDE 101 mmol/L (98-107); CREATININE 1.07 mg/dL (0.55-1.30); GLUCOSE 117 mg/dL (74-106); POTASSIUM 4.4 mmol/L (3.5-5.1); SODIUM SERUM 137 mmol/L (136-145); TOTAL BILIRUBIN 0.6 mg/dL (0.0-1.0); TOTAL PROTEIN, SERUM 6.7 g/dL (6.4-8.3); UREA NITROGEN, BLOOD 22 mg/dL (8-21)
[2023-12-28 08:47] LABS: EOSINOPHILS # (AUTO) 0.2 K/uL (0.0-0.4); LYMPHOCYTES # (AUTO) 2.2 K/uL (1.0-5.5); LYMPHOCYTES % (AUTO) 30.1 % (20.5-51.5); MONOCYTES # (AUTO) 1.1 K/uL (0.0-1.0); NEUTROPHILS # (AUTO) 3.8 K/uL (1.8-7.7); RED CELL DISTRIBUTION WIDTH 13.4 % (9.0-15.0)
[2023-12-28 08:49] LABS: BASOPHILS % (AUTO) 0.3 % (0.0-2.0); EOSINOPHILS % (AUTO) 2.1 % (0.0-4.0); HEMATOCRIT 37.5 % (36-54); HEMOGLOBIN 12.9 g/dL (14.0-18.0); MEAN CORPUSCULAR HEMOGLOBIN 32 pg (27-31); MEAN CORPUSCULAR HGB CONC 35 % (32-36); MEAN CORPUSCULAR VOLUME 93 fL (79.0-98.0); MONOCYTES % (AUTO) 14.5 % (1.7-9.3); PLATELET COUNT (AUTO) 219 K/uL (130-430); RED BLOOD CELL COUNT(AUTO) 4.02 MIL/uL (4.2-6.2); WHITE BLOOD COUNT (AUTO) 7.3 K/uL (4.8-10.8)
[2023-12-28 11:34] VITALS: BP_SYST 149; PULSE 87; RESP 16; TEMP 98.4; O2SAT 96
[2023-12-28 11:37] VITALS: BP_SYST 130; PULSE 91; RESP 17; TEMP 97.8; O2SAT 98
== END 2023-12-28 12:20 | disposition home health service (06) | DRG 432 ==
LOC: SED 05:02 → STU 19:06 → SMU 12-22 10:41
PROVIDERS: ADMIT Preventive Medicine Preventive Medicine/Occupational Environmental Medicine; ATTEND Preventive Medicine Preventive Medicine/Occupational Environmental Medicine
DX: K70.9 Alcoholic liver disease, unspecified (principal); R65.11 Systemic inflammatory response syndrome (SIRS) of non-infectious origin with acute organ dysfunction; E44.0 Moderate protein-calorie malnutrition; F10.139 Alcohol abuse with withdrawal, unspecified; E87.20 Acidosis, unspecified; D64.9 Anemia, unspecified; E88.09 Other disorders of plasma-protein metabolism, not elsewhere classified; E87.6 Hypokalemia; I25.10 Atherosclerotic heart disease of native coronary artery without angina pectoris; F10.129 Alcohol abuse with intoxication, unspecified; I10 Essential (primary) hypertension; Y90.7 Blood alcohol level of 200-239 mg/100 ml; Z89.612 Acquired absence of left leg above knee; Z95.1 Presence of aortocoronary bypass graft; Z68.20 Body mass index [BMI] 20.0-20.9, adult
CPT/HCPCS: 36415; 71045; 76700; 80048; 80053; 80076; 81000; 81001; 81015; 82009; 82105; 82140; 82150; 83605; 83690; 85025; 85610; 85730; 86704; 86706; 86803; 87340; 96375; 97110-GP; 97116-GP; 97530-GP; 99285; G0378; G0482; J2060; J2405; J3411; J3475; J3490; J7030; Q0162